=== PATIENT | female | born 1975 | race Caucasian/White ===

== ENCOUNTER 2018-01-04 14:40 | Emergency (ER) | payer OTHER ==
[~2018-01-04] VITALS: Ht 162.6 cm; Wt 70.0 kg
[2018-01-04 15:15] VITALS: BP 145/90
== END 2018-01-04 16:20 | disposition left against medical advice (07) ==
LOC: ER 15:00
DX: Z53.21 Procedure and treatment not carried out due to patient leaving prior to being seen by health care provider (principal)